=== PATIENT | male | born 1970 | race Caucasian/White ===

== ENCOUNTER 2019-04-23 13:08 | Emergency (ER) | payer BC, MEDICARE ==
[~2019-04-23] VITALS: Ht 172 cm; Wt 99.5 kg
[~2019-04-23 13:08] MED LIST: CIPR500T4 PO; NFPRILOC40; ONDA8TAB13 PO; OXYC1TAB12 PO; TAMS0.4C98 PO
--- NOTE | 2019-04-23 13:50 | ED Lower Extremity ---
General Chief Complaint: Post OP Complications/Pain Stated Complaint: POST OP LEFT HIP/BLEEDING Nursing Triage Note: TO TRIAGE VIA WC. STATES HE HAD LEFT HIP SURGERY ON SATURDAY IN AND IS NOW SEEING BLOOD ON HIS BANDAGE WHICH IS NEW ALONG WITH INCREASED WEAKNESS. Nursing Sepsis Screen: No Definite Risk Source: patient Exam Limitations: no limitations History of Present Illness Date Seen by Provider: Apr 23, 2019 Time Seen by Provider: 13:49 Initial Comments 48-year-old male presents with some small amount of postop bleeding. Patient had left hip revisit in surgery 4 days ago and . They noticed some blood on his bandage this morning and concerned. He is mildly dizzy. Family brought him in just to ensure that he wasn't having some active bleeding to the wound. Patient denies any chest pain, fever, chills or other systemic complaints. Allergies and Home Medications Allergies Coded Allergies: No Known Drug Allergies (Unverified , 02/04/15) Home Medications Ciprofloxacin HCl 500 Mg Tablet, 500 MG PO BID Prescribed by: DAVID HUNT on 02/04/152154 Ondansetron 8 Mg Tab.rapdis, 8 MG PO Q6H PRN for NAUSEA/VOMITING Prescribed by: DAVID HUNT on 02/04/152154 Oxycodone HCl/Acetaminophen 1 Each Tablet, 1 EACH PO Q4H PRN for PAIN Prescribed by: DAVID HUNT on 02/04/152154 Tamsulosin HCl 0.4 Mg Cap, 0.4 MG PO DAILY Prescribed by: DAVID HUNT on 02/04/152154 Patient Home Medication List Home Medication List Reviewed: Yes Review of Systems Constitutional: No chills; dizziness; No fever Respiratory: No cough, No short of breath Cardiovascular: No chest pain, No palpitations Gastrointestinal: no symptoms reported Musculoskeletal: see HPI Skin: see HPI Past Gsuqjnq-Nscelb-Lwpvun Hx Past Med/Social Hx: Reviewed Nursing Past Med/Soc Hx Patient Social History Alcohol Use: Rarely Uses Recreational Drug Use: No Smoking Status: Never a Smoker Recent Foreign Travel: No Contact w/Someone Who Travel: No Recent Infectious Disease Expo: No Immunizations Up To Date Tetanus Booster (TDap): Unknown Seasonal Allergies Seasonal Allergies: No Past Medical History Surgeries: Yes (hips, ing. hernia) Joint Replacement Respiratory: Yes (lung nodules) Cardiac: No Neurological: No Reproductive Disorders: No Sexually Transmitted Disease: No Kidney Stones Gastrointestinal: Yes Gastroesophageal Reflux Musculoskeletal: Yes Arthritis Endocrine: Yes Diabetes, Non-Insulin dep Cancer: No Psychosocial: No Integumentary: No Blood Disorders: No Adverse Reaction/Blood Tranf: No Family Medical History No Pertinent Family Hx Physical Exam Vital Signs Vital Signs - First Documented 04/23/19 13:23 Temp 36.6 Pulse 84 Resp 16 B/P (MAP) 126/82 (97) Pulse Ox 96 O2 Delivery Room Air Capillary Refill : Less Than 3 Seconds Height, Weight, BMI Height: 5'8" Weight: 205lbs. oz. [id number]; 33.00 BMI Method:Stated General Appearance: WD/WN, no apparent distress Cardiovascular: normal peripheral pulses, regular rate, rhythm Respiratory: lungs clear, normal breath sounds Gastrointestinal: non tender, soft Hips: left hip other (postop incision with mild bleeding likely from a hematoma. No active bleed. 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 No active bleeding at this time. Incision is intact with no signs of infection) Progress/Results/Core Measures Results/Orders Lab Results Laboratory Tests Test 04/23/19 14:04 Range/Units White Blood Count 9.8 4.3-11.0 10^3/uL Red Blood Count 4.64 4.35-5.85 10^6/uL Hemoglobin 13.4 13.3-17.7 G/DL Hematocrit 41 40-54 % Mean Corpuscular Volume 88 80-99 FL Mean Corpuscular Hemoglobin 29 25-34 PG Mean Corpuscular Hemoglobin Concent 33 32-36 G/DL Red Cell Distribution Width 13.8 10.0-14.5 % Platelet Count 325 130-400 10^3/uL Mean Platelet Volume 9.9 7.4-10.4 FL My Orders Orders - RAGHAVENDRA CHAPMAN DO Cbc No Diff (04/23/19 13:50) Vital Signs/I&O 04/23/19 13:23 Temp 36.6 Pulse 84 Resp 16 B/P (MAP) 126/82 (97) Pulse Ox 96 O2 Delivery Room Air Blood Pressure Mean: 97 POS Departure Impression Primary Impression: Encounter for postoperative wound check Additional Impression: Postoperative bleeding from incision Disposition: 01 HOME, SELF-CARE Condition: Stable Departure-Patient Inst. Referrals: SANTOS SOLIS MD (PCP) Primary Care Physician Patient Instructions: Wound Care (DC), Surgical Wound (DC) Add. Discharge Instructions: Follow-up with your orthopedic surgeon next week for recheck of incision Emergency department focuses on treating and ruling out life-threatening diseases. Whenever possible, a diagnosis is given. However, most patients are given an impression based on their history, physical exam, and workup during your brief time in the ER. Information about probable diagnosis and other educational material has been provided. Please take the time to read and understand this information. It is very important that you follow up with a physician as discussed during the visit today. Failure to adhere to your follow-up instructions may lead to severe disability, injury, or so please make sure to keep your appointments or obtain one as requested. Please keep in mind the emergency department is not designed to your primary care or "family doctor" and nonurgent issues are best evaluated by an outpatient physician RAGHAVENDRA CHAPMAN DO Apr 23, 2019 13:49 POS
--- NOTE | 2019-04-23 14:00 | NUR ---
Incision site to Lt hip cleaned (chlorhexidine soultion), dried, and covered with drsg. No redness, swelling, or purulent drainage noted.
[2019-04-23 14:21] LABS: HEMOGLOBIN 13.4 G/DL (13.3-17.7); MEAN PLATELET VOLUME 9.9 FL (7.4-10.4); RED CELL DISTRIBUTION WIDTH 13.8 % (10.0-14.5); WHITE BLOOD COUNT 9.8 10^3/uL (4.3-11.0)
[2019-04-23] MEDS ORDERED: NS IV 1000 ML 1,000 ML IV SCH (14:30)
[2019-04-23] MEDS ORDERED: inSUlin (REGULAR) HUMAN 1 UNIT/0.01 ML (CHARGE PER UNIT) IV ONE (14:30)
[2019-04-23 15:00] VITALS: BP 127/93
== END 2019-04-23 15:00 | disposition home or self-care (01) ==
LOC: EDUNIT# 13:08 → ER 13:10
DX: L76.22 Postprocedural hemorrhage of skin and subcutaneous tissue following other procedure (principal); E11.9 Type 2 diabetes mellitus without complications; K21.9 Gastro-esophageal reflux disease without esophagitis; Z87.442 Personal history of urinary calculi
CPT/HCPCS: 36415; 85027; 99281

== ENCOUNTER → 2019-12-30 | Outpatient (CLI) | payer BC, MEDICARE ==
[~2019-12-30] MED LIST changes: -TAMS0.4C98 PO; +TMSL.4C PO
--- NOTE | 2020-01-01 08:17 | Diagnostic Imaging Report ---
EXAMINATION: Left hip 2 views on 12/29 1:44 PM. INDICATION: Increasing left hip pain. No prior studies are available for comparison. Postop changes left hip arthroplasty are noted. Longstem femoral component is well centered within the medullary canal. There is a lucency through the medial cortex of the proximal left femur in the subtrochanteric region consistent with some fracture lines however age of these are indeterminate. A femoral acetabular alignment is normal. Very slight acetabular protrusio is noted. IMPRESSION: Postop changes left hip. There is some cortical interruption involving the medial cortex of the subtrochanteric left femur consistent with fracture lines. Correlation with prior outside radiographs would be useful. No other significant abnormality is seen. Dictated by: Dictated on workstation # [id number]
== END ==
LOC: RAD 13:20
PROVIDERS: ATTEND Physician Assistant
DX: M25.552 Pain in left hip (principal); Z98.890 Other specified postprocedural states
CPT/HCPCS: 73502